=== PATIENT | male | born 1990 | race Caucasian/White ===

== ENCOUNTER 2018-07-28 04:23 | Emergency (ER) | payer BC, OTHER ==
[~2018-07-28] VITALS: Ht 172.7 cm; Wt 104.5 kg
[2018-07-28] MEDS ORDERED: ondansetron 4mg rapidly disintigrating tab PO ONE (04:50)
[2018-07-28] MEDS ORDERED: acetaminophen 325mg tablet PO ONE (04:50)
[2018-07-28] MEDS ORDERED: ketorolac trometh inj. 60 MG/2 ML VIAL IM ONE (04:50)
[2018-07-28] MEDS ORDERED: CYCL-1 PO (04:53)
[2018-07-28] MEDS ORDERED: ONDA8TAB9 PO (05:05)
[2018-07-28] MEDS ORDERED: normal saline 1000ML IV soln IVB ONE (05:30)
[2018-07-28] MEDS ORDERED: proCHLORperazine 10 MG/2 ml inj IV ONE (05:30)
[2018-07-28 06:15] LABS: BASOPHILS # (AUTO) 0.1 X10'3 (0-0.2); EOSINOPHILS # (AUTO) 0.4 X10'3 (0-0.9); EOSINOPHILS % (AUTO) 3.4 % (0-6); HEMATOCRIT 47.2 % (42.0-52.0); HEMOGLOBIN 16.3 g/dl (14.0-17.9); LYMPHOCYTES # (AUTO) 2.6 X10'3 (1.1-4.8); MEAN CORPUSCULAR HEMOGLOBIN 30.6 PG (27.0-31.0); MEAN CORPUSCULAR HGB CONC 34.5 % (33.0-36.5); MEAN CORPUSCULAR VOLUME 88.7 FL (78-98); MEAN PLATELET VOLUME 8.9 FL (7.4-10.4); MONOCYTES % (AUTO) 9.4 % (2-12); NEUTROPHILS # (AUTO) 6.3 X10'3 (1.8-7.7); NEUTROPHILS % (AUTO) 61.2 % (42-75); PLATELET COUNT 353 X10'3 (140-440); RED BLOOD COUNT 5.32 X10'6 (4.70-6.10); RED CELL DISTRIBUTION WIDTH 12.1 % (11.5-14.5); WHITE BLOOD COUNT 10.4 X10'3 (4.5-11.0)
[2018-07-28 06:21] LABS: ALANINE AMINOTRANSFERASE 65 U/L (12-78); ALBUMIN/GLOBULIN RATIO 1.1 (1.1-1.5); ALKALINE PHOSPHATASE 84 IU/L (46-116); ANION GAP 10 (8-16); ASPARTATE AMINO TRANSFERASE 21 U/L (10-37); BILIRUBIN,TOTAL 0.4 MG/DL (0.1-1.0); BLOOD UREA NITROGEN 13 MG/DL (7-18); CALCIUM 9.3 MG/DL (8.5-10.1); CHLORIDE 104 MMOL/L (99-107); GLUCOSE 105 MG/DL (70-104); LIPASE 114 U/L (73-393); POTASSIUM 4.2 MMOL/L (3.5-5.1); SODIUM 141 MMOL/L (135-145); TOTAL CARBON DIOXIDE 26.6 MMOL/L (24-32); TOTAL PROTEIN 7.6 G/DL (6.4-8.2); eGFR 89 ML/MIN
[2018-07-28 07:01] VITALS: BP 125/73
== END 2018-07-28 07:08 | disposition home or self-care (01) ==
LOC: ER 04:23
DX: M54.5 Low back pain (principal); R11.10 Vomiting, unspecified; G43.909 Migraine, unspecified, not intractable, without status migrainosus; G89.29 Other chronic pain; Z98.52 Vasectomy status; Z79.899 Other long term (current) drug therapy
CPT/HCPCS: 36415; 74176; 80053; 83690; 85025; 96361; 96372; 96374; 99285; J0780; J1885